=== PATIENT | male | born 1980 ===

== ENCOUNTER 2018-09-04 17:45 | Observation (INO) | payer OTHER ==
[2018-09-04] MEDS ORDERED: Lidocaine 5% Patch TD STA (18:52)
[2018-09-04] MEDS ORDERED: Lidocaine 5% Patch TD ONE (19:00)
--- NOTE | 2018-09-04 19:33 | ED PDOC ---
HPI: Chest Pain Time Seen by Provider: 09/04/18 18:26 Chief Complaint (Nursing): Shortness Of Breath Chief Complaint (Provider): Chest Pain History Per: Patient History/Exam Limitations: no limitations Onset/Duration Of Symptoms: Days (x5) Current Symptoms Are (Timing): Still Present Additional Complaint(s): 38 year old male presents to the ED for evaluation of worsening right sided chest pain for the past five days associated with shortness of breath and pleuritic pain worse with deep inspiration. He notes he gets winded when trying to do tasks such as run across the street. Denies trauma, injury, and smoking. Past Medical History Reviewed: Historical Data, Nursing Documentation, Vital Signs Vital Signs: Last Vital Signs Temp 98.8 F 09/04/18 17:50 Pulse 74 09/04/18 17:50 Resp 20 09/04/18 17:50 BP 136/82 09/04/18 17:50 Pulse Ox 98 09/04/18 17:50 Primary Care Provider: FAMILY PROVIDER,NO - Medical History PMH: No Chronic Diseases - Surgical History Surgical History: No Surg Hx - Family History Family History: States: No Known Family Hx - Social History Current smoker - smoking cessation education provided: No Alcohol: None Drugs: Denies - Allergies Allergies/Adverse Reactions: Allergies Allergy/AdvReac Type Severity Reaction Status Date / Time Penicillins Allergy RASH Verified 09/04/18 17:50 Review of Systems ROS Statement: Except As Marked, All Systems Reviewed And Found Negative (as per HPI) Cardiovascular: Positive for: Chest Pain (right sided) Respiratory: Positive for: Shortness of Breath, Pleuritic Pain (worse with deep inspiration) Physical Exam - Reviewed Nursing Documentation Reviewed: Yes Vital Signs Reviewed: Yes - Physical Exam Appears: Positive for: No Acute Distress Head Exam: Positive for: ATRAUMATIC, NORMOCEPHALIC Skin: Positive for: Warm, Dry Eye Exam: Positive for: EOMI, PERRL ENT: Negative for: Pharyngeal Erythema, Tonsillar Exudate Neck: Positive for: Painless ROM, Supple Cardiovascular/Chest: Positive for: Regular Rate, Rhythm. Negative for: Chest Non Tender (reproducible right uppe chest wall tenderness with no crepitus or step off), Murmur Respiratory: Positive for: Normal Breath Sounds (to auscultation bilaterally). Negative for: Accessory Muscle Use, Rales, Rhonchi, Wheezing, Respiratory Distress Gastrointestinal/Abdominal: Positive for: Soft. Negative for: Tenderness Back: Positive for: Normal Inspection. Negative for: Decreased ROM Extremity: Positive for: Normal ROM. Negative for: Deformity Lymphatic: Negative for: Adenopathy Neurological/Psych: Positive for: Awake, Alert. Negative for: Motor/Sensory Deficits - Laboratory Results Result Diagrams: 09/04/18 20:34 09/04/18 20:34 - ECG ECG: Positive for: Interpreted By Me, Viewed By Me ECG Rhythm: Positive for: Normal QRS, Normal ST Segment, Sinus Rhythm (at 67 bpm) O2 Sat by Pulse Oximetry: 98 (RA) Pulse Ox Interpretation: Normal Medical Decision Making Medical Decision Making: Initial Impression: right sided wall pain DDx includes but is not limited to: pneumothorax, pneumonia, costochondritis, muscle strain Initial Plan: --EKG --CXR --Flexeril 10mg PO --Lidoderm 1 ea TD --Ibuprofen 600mg PO 2024 CXR read by me as positive for bilateral lower lung infiltrates. Pneumonia workup ordered. CT Chest without Intravenous Contrast. CLINICAL HISTORY: Bilat. infiltrates TECHNIQUE: Axial computed tomography images of the chest without intravenous contrast. 360.67 mGy-cm CONTRAST: Without COMPARISON: None provided. FINDINGS: LUNGS: There are posterior bibasilar pneumonic consolidations present. No pulmonary mass. PLEURAL SPACES: No pneumothorax evident. No pleural effusions. HEART: No cardiomegaly. No pericardial effusion. LYMPH NODES: No lymphadenopathy is evident. BONES: No focal osseous abnormality or acute fracture. UPPER ABDOMEN: The upper abdomen demonstrates hepatomegaly. The liver measures approximately 17.8 cm in the midclavicular line. IMPRESSION: 1. Posterior bibasilar pneumonic consolidations are present. 2. Hepatomegaly. Electronically signed on September 04, 2018 10:12:29 PM EDT by: Vic Carroll M.D., M.B.A., Certified By ABR [id number] Labs demonstrate no leukocytosis. Antibiotics started for possible bilateral pneumonia, however, since pt has no fever, cough, or leukocytosis, concern over pulmonary pathology persists. Will hospitalize patient for bilateral infiltr ates, as discussed with Dr. Brar, hospitalist. Case also discussed with Dr. Perez, pulmonology, who is agreeable to evaluating patient in hospital. Scribe Attestation: Documented by Ying Lilly, acting as a scribe for Megan Penaloza MD. Provider Scribe Attestation: All medical record entries made by the Scribe were at my direction and personally dictated by me. I have reviewed the chart and agree that the record accurately reflects my personal performance of the history, physical exam, medical decision making, and the department course for this patient. I have also personally directed, reviewed, and agree with the discharge instructions and disposition. Disposition - Clinical Impression Clinical Impression: Pneumonia of both lower lobes Counseled Patient/Family Regarding: Studies Performed, Diagnosis - Disposition Disposition Time: 22:00 Condition: FAIR - Pt Status Changed To: Hospital Disposition Of: Observation - POA Present On Arrival: None
[2018-09-04 21:01] LABS: BASO % 0.9 % (0.0-2.0); EOS # 0.2 K/uL (0.0-0.7); EOS % 4.9 % (0.0-4.0); HEMOGLOBIN 13.5 g/dL (12.0-18.0); LYMPH # 1.9 K/uL (1.0-4.3); LYMPH % 39.6 % (20.0-40.0); MEAN CELL VOLUME 97.2 fl (80.0-94.0); MEAN CORPUSCULAR HEMOGLOBIN 33.3 pg (27.0-31.0); MEAN CORPUSCULAR HGB CONC 34.3 g/dL (33.0-37.0); MEAN PLATELET VOLUME 8.9 fl (7.2-11.7); MONO # 0.4 K/uL (0.0-0.8); MONO % 7.4 % (0.0-10.0); NEUT # 2.2 K/uL (1.8-7.0); NEUT % 47.2 % (50.0-75.0); NRBC % 0.1 % (0.0-0.0); RBC 4.05 Mil/uL (4.40-5.90); RED CELL DISTRIBUTION WIDTH 12.5 % (11.5-14.5); WHITE BLOOD COUNT 4.8 K/uL (4.8-10.8)
[2018-09-04 21:17] LABS: ALB/GLOB RATIO 1.5 (1.0-2.1); ALBUMIN 4.5 g/dL (3.5-5.0); ALT/SGPT 32 U/L (21-72); AST/SGOT 34 U/L (17-59); BLOOD UREA NITROGEN 21 mg/dl (9-20); CALCIUM 9.1 mg/dL (8.4-10.2); GFR NON-AFRICAN AMERICAN > 60
[2018-09-04] MEDS ORDERED: levoFLOXacin 750 mg in D5W 150 ML BAG IVPB STA (22:26)
[2018-09-04] MEDS ORDERED: levoFLOXacin 750 mg in D5W 750 MG/150 ML BAG IVPB ONE (22:35)
--- NOTE | 2018-09-04 23:30 | CP.PCM.HP ---
<Francine Penn - Last Filed: 09/04/18 23:39> History of Present Illness - History of Present Illness History of Present Illness: CC: dyspnea and chest pain HPI: 38 YO Male with no sig PMHx presents to the ED for dyspne and R sided chest pain. Patient states that his chest pain started 5 days ago, initially mild but worsen over the past few days, located in the R side of his chest, no radiation, sharp in nature, worse with cough, sneeze. Dsypnea started two days ago and worsened today, also endorsing chills in the past two days. Endorsing 3-4 episodes of cough in the past two weeks, non-productive. Denies flu like symptoms, fever, sweats, sick contacts, n/v/d. Denies travel in the past 6+months, and no sick contacts at home, no prolonged stasis [place] [id number] PMHx: denies SurgHX: denies FHx: DM in mother SHx: , sexually active with , using protection. ETOH in the past (ye ars ago), denies current ETOH, smoking and illicit drug use Allergies: Penicillin-rash Meds: Tylenol for pain at home Present on Admission - Present on Admission Any Indicators Present on Admission: No Review of Systems - Constitutional Constitutional: Chills, Malaise. absent: Fever, Night Sweats, Weight Loss - Cardiovascular Cardiovascular: Chest Pain, Dyspnea - Respiratory Respiratory: Cough (infrequent ), Dyspnea, Dyspnea on Exertion, Pain on Inspiration, Pain with Coughing - Gastrointestinal Gastrointestinal: absent: Abdominal Pain - Neurological Neurological: absent: Headaches Past Patient History - Past Social History Smoking Status: Never Smoked Alcohol: Social Drugs: Denies Home Situation {Lives}: With Family - PSYCHIATRIC Hx Substance Use: No Meds Allergies/Adverse Reactions: Allergies Allergy/AdvReac Type Severity Reaction Status Date / Time Penicillins Allergy RASH Verified 09/04/18 17:50 Physical Exam - Constitutional Appears: No Acute Distress, Other (looks fit ) - Head Exam Head Exam: NORMAL INSPECTION - Eye Exam Eye Exam: EOMI, Normal appearance - ENT Exam ENT Exam: Mucous Membranes Moist - Respiratory Exam Respiratory Exam: Decreased Breath Sounds (in the lower lobes b/l ), Rhonchi (mild in the R middle/lower lobe ), NORMAL BREATHING PATTERN. absent: Chest Wall Tenderness, Rales - Cardiovascular Exam Cardiovascular Exam: REGULAR RHYTHM, +S1, +S2 - GI/Abdominal Exam GI & Abdominal Exam: Normal Bowel Sounds, Soft. absent: Tenderness - Extremities Exam Extremities exam: Positive for: normal inspection. Negative for: calf tenderness, pedal edema - Back Exam Back exam: NORMAL INSPECTION - Neurological Exam Neurological exam: Alert, Oriented x3 - Psychiatric Exam Psychiatric exam: Normal Mood - Skin Skin Exam: Dry, Intact, Normal Color, Warm Results - Vital Signs Recent Vital Signs: Last Vital Signs Temp 98.6 F 09/04/18 23:16 Pulse 55 L 09/04/18 23:16 Resp 16 09/04/18 23:16 BP 116/75 09/04/18 23:16 Pulse Ox 98 09/04/18 23:16 - Labs Result Diagrams: 09/04/18 20:34 09/04/18 20:34 Labs: Laboratory Results - last 24 hr 09/04/18 09/04/18 09/04/18 20:34 20:34 20:34 WBC 4.8 RBC 4.05 L Hgb 13.5 Hct 39.3 MCV 97.2 H MCH 33.3 H MCHC 34.3 RDW 12.5 Plt Count 186 MPV 8.9 Neut % (Auto) 47.2 L Lymph % (Auto) 39.6 [place] % (Auto) 7.4 Eos % (Auto) 4.9 H Baso % (Auto) 0.9 Neut # (Auto) 2.2 Lymph # (Auto) 1.9 [place] # (Auto) 0.4 Eos # (Auto) 0.2 Baso # (Auto) 0.0 Sodium 138 Potassium 3.5 L Chloride 99 Carbon Dioxide 29 Anion Gap 14 BUN 21 H Creatinine 0.9 Est GFR ( Amer) > 60 Est GFR (Non-Af Amer) > 60 Random Glucose 87 Lactic Acid 1.0 Calcium 9.1 Total Bilirubin 0.5 AST 34 ALT 32 Alkaline Phosphatase 66 Total Protein 7.7 Albumin 4.5 Globulin 3.1 Albumin/Globulin Ratio 1.5 HIV-1 Ab Rapid Screen 09/04/18 20:53 WBC RBC Hgb Hct MCV MCH MCHC RDW Plt Count MPV Neut % (Auto) Lymph % (Auto) [place] % (Auto) Eos % (Auto) Baso % (Auto) Neut # (Auto) Lymph # (Auto) [place] # (Auto) Eos # (Auto) Baso # (Auto) Sodium Potassium Chloride Carbon Dioxide Anion Gap BUN Creatinine Est GFR ( Amer) Est GFR (Non-Af Amer) Random Glucose Lactic Acid Calcium Total Bilirubin AST ALT Alkaline Phosphatase Total Protein Albumin Globulin Albumin/Globulin Ratio HIV-1 Ab Rapid Screen Non reactive Assessment & Plan - Assessment and Plan (Free Text) Assessment: Assessment/Plan: 38 YO Male with no sig PMH is admitted for bilateral pulmonary infiltrates. Bilateral pulmonary infiltrates -atypical symptoms present, no leukocystosis, cough or fevers present -likely walking pneumonia but given symptoms other causes like atelectasis, PE or other pulmonary pathologies cannot be ruled out -CT chest sig for Posterior bibasilar pneumonic consolidations are present (mosaic pattern noted in the lower lobes b/l) -follow up official CT findings -Pulmonary consulted, follow up recs -mildly elevated d-dimer, will order CTA to r/o PE -c/w IV abx for now -Pain management -Duonab prn for dyspnea -follow up procalcitonin for infection Dehydration -mildly elevated BUN -IV hydration and follow up AM labs Hypokalemia -Low K -will replace PO -follow up BMP DVT prolx -Lovenox SC <Jono Brar - Last Filed: 09/05/18 04:17> Results - Vital Signs Recent Vital Signs: Last Vital Signs Temp 97.2 F L 09/05/18 02:04 Pulse 50 L 09/05/18 02:04 Resp 20 09/05/18 02:04 BP 113/72 09/05/18 02:04 Pulse Ox 98 09/05/18 02:04 - Labs Result Diagrams: 09/04/18 20:34 09/04/18 20:34 Labs: Laboratory Results - last 24 hr 09/04/18 09/04/18 09/04/18 20:34 20:34 20:34 WBC 4.8 RBC 4.05 L Hgb 13.5 Hct 39.3 MCV 97.2 H MCH 33.3 H MCHC 34.3 RDW 12.5 Plt Count 186 MPV 8.9 Neut % (Auto) 47.2 L Lymph % (Auto) 39.6 [place] % (Auto) 7.4 Eos % (Auto) 4.9 H Baso % (Auto) 0.9 Neut # (Auto) 2.2 Lymph # (Auto) 1.9 [place] # (Auto) 0.4 Eos # (Auto) 0.2 Baso # (Auto) 0.0 D-Dimer, Quantitative Sodium 138 Potassium 3.5 L Chloride 99 Carbon Dioxide 29 Anion Gap 14 BUN 21 H Creatinine 0.9 Est GFR ( Amer) > 60 Est GFR (Non-Af Amer) > 60 Random Glucose 87 Lactic Acid 1.0 Calcium 9.1 Total Bilirubin 0.5 AST 34 ALT 32 Alkaline Phosphatase 66 Total Protein 7.7 Albumin 4.5 Globulin 3.1 Albumin/Globulin Ratio 1.5 HIV-1 Ab Rapid Screen 09/04/18 09/04/18 20:53 22:40 WBC RBC Hgb Hct MCV MCH MCHC RDW Plt Count MPV Neut % (Auto) Lymph % (Auto) [place] % (Auto) Eos % (Auto) Baso % (Auto) Neut # (Auto) Lymph # (Auto) [place] # (Auto) Eos # (Auto) Baso # (Auto) D-Dimer, Quantitative 236 H Sodium Potassium Chloride Carbon Dioxide Anion Gap BUN Creatinine Est GFR ( Amer) Est GFR (Non-Af Amer) Random Glucose Lactic Acid Calcium Total Bilirubin AST ALT Alkaline Phosphatase Total Protein Albumin Globulin Albumin/Globulin Ratio HIV-1 Ab Rapid Screen Non reactive Attending/Attestation - Attestation I have personally seen and examined this patient.: Yes I have fully participated in the care of the patient.: Yes I have reviewed all pertinent clinical information: Yes Notes (Text): 09/05/18 04:10 I saw, examined and discussed this patient with Dr Penn. I agree with the assessment and plan outlined. This is a 38 years old male with no significant medical hx who comes with 4 days of localized pleuritic right side chest pain associated with SOB. CT chest showed signs of bibasal pneumonia. CTA was negative for PE. We will treat Acute Community Aquired Pneumonia, most likely Atypical with Rocephin and Azithromycin. Treat hypokalemia and dehydration. Jono Brar MD
[2018-09-04] MEDS ORDERED: Albuterol-Ipratrop 3 mg / 0.5 (3 ml) UD INH PRN (23:36)
[2018-09-04] MEDS ORDERED: Potassium Chloride 20 mEq ER Tab PO ONE (23:37)
[2018-09-04] MEDS ORDERED: Sodium Chloride 0.9% 1,000 ML IV SCH (23:45)
[2018-09-04 23:48] VITALS: BMI 25.7
[2018-09-05] MEDS ORDERED: Iodixanol 320 MG/ML 100 ML BOTTLE IV ONE (00:10)
[2018-09-05] MEDS ORDERED: Sodium Chloride 0.9% 50 ML IV ONE (00:10)
[2018-09-05] MEDS ORDERED: Potassium Chloride 20 mEq ER Tab PO ONE (01:24)
[2018-09-05 02:05] VITALS: RESP 20
[2018-09-05 06:23] LABS: BASO % 0.8 % (0.0-2.0); EOS # 0.2 K/uL (0.0-0.7); EOS % 5.4 % (0.0-4.0); HEMOGLOBIN 13.3 g/dL (12.0-18.0); LYMPH # 1.5 K/uL (1.0-4.3); LYMPH % 35.7 % (20.0-40.0); MEAN CELL VOLUME 97.2 fl (80.0-94.0); MEAN CORPUSCULAR HEMOGLOBIN 33.5 pg (27.0-31.0); MEAN CORPUSCULAR HGB CONC 34.5 g/dL (33.0-37.0); MEAN PLATELET VOLUME 8.6 fl (7.2-11.7); MONO # 0.3 K/uL (0.0-0.8); MONO % 7.8 % (0.0-10.0); NEUT # 2.1 K/uL (1.8-7.0); NEUT % 50.3 % (50.0-75.0); NRBC % 0.2 % (0.0-0.0); RBC 3.96 Mil/uL (4.40-5.90); RED CELL DISTRIBUTION WIDTH 12.4 % (11.5-14.5); WHITE BLOOD COUNT 4.1 K/uL (4.8-10.8)
[2018-09-05 06:53] LABS: BLOOD UREA NITROGEN 16 mg/dl (9-20); CALCIUM 8.8 mg/dL (8.4-10.2); GFR NON-AFRICAN AMERICAN > 60
[2018-09-05] MEDS ORDERED: Enoxaparin 40 mg Syringe SC SCH (09:00)
[2018-09-05 10:18] LABS: ABG ALLEN TEST YES; ARTERIAL BLOOD GAS HCO3 27.2 mmol/L (21-28); ARTERIAL BLOOD GAS HEMOGLOBIN 13.8 g/dL (11.7-17.4); ARTERIAL BLOOD GAS O2 CAPACITY 18.9 mL/dL (16-24); ARTERIAL BLOOD GAS O2 CONTENT 18.5 ML/dL (15-23); ARTERIAL BLOOD GAS O2 SAT 97.8 % (95-98); ARTERIAL BLOOD GAS PCO2 39 mm/Hg (35-45); ARTERIAL BLOOD GAS PH 7.45 (7.35-7.45); ARTERIAL BLOOD GAS PO2 79 mm/Hg (80-100); ARTERIAL BLOOD GAS TCO2 28.3 mmol/L (22-28)
--- NOTE | 2018-09-05 10:27 | RAD ---
Date of service: 09/04/2018 HISTORY: right sided chest pain COMPARISON: Correlation made with concomitant CT chest. TECHNIQUE: Chest PA and lateral views FINDINGS: LUNGS: Linear and discoid type atelectatic changes seen in lower lung houser. Lung bases. PLEURA: No significant pleural effusion identified. No pneumothorax apparent. CARDIOVASCULAR: No aortic atherosclerotic calcification present. Normal cardiac size. No pulmonary vascular congestion. OSSEOUS STRUCTURES: No significant abnormalities. VISUALIZED UPPER ABDOMEN: Normal. OTHER FINDINGS: None. IMPRESSION: Linear and discoid type atelectatic changes seen in lower lower lung houser. Lung bases.
--- NOTE | 2018-09-05 10:27 | CT ---
Date of service: 09/04/2018 PROCEDURE: CT Chest without contrast HISTORY: bilateral infiltrates COMPARISON: None available. TECHNIQUE: Contiguous axial images were obtained through the chest without intravenous contrast enhancement. Sagittal and coronal reconstructions were performed. Radiation dose (DLP): 360.67 mGy-cm. This CT exam was performed using one or more of the following dose reduction techniques: Automated exposure control, adjustment of the mA and/or kV according to patient size, and/or use of iterative reconstruction technique. FINDINGS: LUNGS: Bilateral lower lobe linear scar/atelectasis. No pulmonary infiltrate. No pulmonary mass. Minimal linear scar/atelectasis in the lingula and right middle lobe. MEDIASTINUM: Unremarkable thoracic aorta. No aneurysm. Normal sized heart. Main pulmonary artery unremarkable. No vascular congestion. No lymphadenopathy. No aortic atherosclerotic calcification or mural plaque present. PLEURA: No pleural fluid. No pneumothorax. BONES: No fracture. No destructive lesion. UPPER ABDOMEN: Grossly unremarkable. OTHER FINDINGS: None. IMPRESSION: Linear scar/atelectasis both lower lobes, right middle lobe and lingula. No pulmonary infiltrate. Otherwise unremarkable examination. The preliminary findings for this examination were reported by [facility] at 10:12 p.m. on 09/04/2018. There is discordance of this report with the preliminary findings. There is no iraida pulmonary infiltrate identified at this time. No
--- NOTE | 2018-09-05 11:01 | CT ---
Date of service: 09/05/2018 PROCEDURE: CT Chest with contrast (Pulmonary Angiogram) HISTORY: Right Chest pain/ Shortness of Breath COMPARISON: Comparison made with chest radiograph and noncontrast CT chest both dated 09/04/2018. TECHNIQUE: Axial computed tomography images were obtained of the chest in the pulmonary arterial phase of enhancement. Coronal and sagittal reformatted images were created and reviewed. Intravenous contrast dose: Radiation dose: Total exam DLP = 373.64 mGy-cm. This CT exam was performed using one or more of the following dose reduction techniques: Automated exposure control, adjustment of the mA and/or kV according to patient size, and/or use of iterative reconstruction technique. FINDINGS: PULMONARY ARTERIES: The visualized pulmonary trunk, right and left main, lobar, segmental and proximal subsegmental branches of the pulmonary arteries are well opacified with no evidence to suggest acute central pulmonary embolus. Pulmonary trunk measures approximately 3 cm. AORTA: No acute findings. No thoracic aortic aneurysm. Ascending thoracic aorta measures approximately 3.1 cm and descending thoracic aorta measures approximately 2.4 cm. No aortic atherosclerotic calcification or mural plaque present. LUNGS: There are areas of linear and discoid type atelectasis present in both lung bases as well as the middle lobe and lingular regions. Additionally, there are areas of passive/dependent type atelectasis both posterior lower lung houser. PLEURAL SPACES: Unremarkable. No effusion or pneumothorax. HEART: Heart size borderline/mildly enlarged.. No significant pericardial effusion. LYMPH NODES: No significant mediastinal or hilar lymphadenopathy. Trachea midline and patent with no large central endoluminal lesions. There is a small hiatal hernia. BONES, CHEST WALL: Minor multilevel degenerative spondylosis of the thoracic spine. OTHER FINDINGS: Unremarkable. IMPRESSION: No evidence of acute central pulmonary embolus. Areas of linear and discoid type atelectasis both lung bases including the middle lobe and lingular regions. Mild passive/dependent type atelectasis also present in both posterior lower lung houser.
--- NOTE | 2018-09-05 11:15 | CP.PCM.DIS ---
Provider - Provider Date of Admission: 09/04/18 22:34 Attending physician: Jono Brar Consults: 09/04/18 22:35 Pulmonology Consult Routine Comment: Consulting Provider: Jake Perez Consulting Physician: Jake Perez Reason for Consult: bilateral pulm infiltrates Time Spent in preparation of Discharge (in minutes): 20 Diagnosis - Discharge Diagnosis (1) Atelectasis of both lungs Status: Acute (2) Dehydration Status: Acute (3) Hypokalemia Status: Acute Hospital Course - Lab Results Lab Results: Most Recent Lab Values WBC 4.1 K/uL (4.8-10.8) L 09/05/18 05:45 RBC 3.96 Mil/uL (4.40-5.90) L 09/05/18 05:45 Hgb 13.3 g/dL (12.0-18.0) 09/05/18 05:45 Hct 38.5 % (35.0-51.0) 09/05/18 05:45 MCV 97.2 fl (80.0-94.0) H 09/05/18 05:45 MCH 33.5 pg (27.0-31.0) H 09/05/18 05:45 MCHC 34.5 g/dL (33.0-37.0) 09/05/18 05:45 RDW 12.4 % (11.5-14.5) 09/05/18 05:45 Plt Count 186 K/uL (130-400) 09/05/18 05:45 MPV 8.6 fl (7.2-11.7) 09/05/18 05:45 Neut % (Auto) 50.3 % (50.0-75.0) 09/05/18 05:45 Lymph % (Auto) 35.7 % (20.0-40.0) 09/05/18 05:45 [place] % (Auto) 7.8 % (0.0-10.0) 09/05/18 05:45 Eos % (Auto) 5.4 % (0.0-4.0) H 09/05/18 05:45 Baso % (Auto) 0.8 % (0.0-2.0) 09/05/18 05:45 Neut # (Auto) 2.1 K/uL (1.8-7.0) 09/05/18 05:45 Lymph # (Auto) 1.5 K/uL (1.0-4.3) 09/05/18 05:45 [place] # (Auto) 0.3 K/uL (0.0-0.8) 09/05/18 05:45 Eos # (Auto) 0.2 K/uL (0.0-0.7) 09/05/18 05:45 Baso # (Auto) 0.0 K/uL (0.0-0.2) 09/05/18 05:45 D-Dimer, Quantitative 236 ng/mlDDU (0-230) H 09/04/18 22:40 pCO2 39 mm/Hg (35-45) 09/05/18 08:47 pO2 79 mm/Hg (80-100) L 09/05/18 08:47 HCO3 27.2 mmol/L (21-28) 09/05/18 08:47 ABG pH 7.45 (7.35-7.45) 09/05/18 08:47 ABG Total CO2 28.3 mmol/L (22-28) H 09/05/18 08:47 ABG O2 Saturation 97.8 % (95-98) 09/05/18 08:47 ABG O2 Content 18.5 ML/dL (15-23) 09/05/18 08:47 ABG Base Excess 3.0 mmol/L (-2.0-3.0) 09/05/18 08:47 ABG Hemoglobin 13.8 g/dL (11.7-17.4) 09/05/18 08:47 ABG Carboxyhemoglobin 2.3 % (0.5-1.5) H 09/05/18 08:47 POC ABG HHb (Measured) 2.1 % (0.0-5.0) 09/05/18 08:47 ABG Methemoglobin 0.7 % (0.0-3.0) 09/05/18 08:47 ABG O2 Capacity 18.9 mL/dL (16-24) 09/05/18 08:47 Babar Test Yes 09/05/18 08:47 A-a O2 Difference 22.0 mm/Hg 09/05/18 08:47 Hgb O2 Saturation 94.9 % (95.0-98.0) L 09/05/18 08:47 FiO2 21.0 % 09/05/18 08:47 Sodium 138 mmol/l (132-148) 09/05/18 05:45 Potassium 4.0 MMOL/L (3.6-5.0) 09/05/18 05:45 Chloride 104 mmol/L (98-107) 09/05/18 05:45 Carbon Dioxide 27 mmol/L (22-30) 09/05/18 05:45 Anion Gap 11 (10-20) 09/05/18 05:45 BUN 16 mg/dl (9-20) 09/05/18 05:45 Creatinine 0.8 mg/dl (0.8-1.5) 09/05/18 05:45 Est GFR ( Amer) > 60 09/05/18 05:45 Est GFR (Non-Af Amer) > 60 09/05/18 05:45 Random Glucose 87 mg/dL (75-110) 09/05/18 05:45 Lactic Acid 1.0 mmol/L (0.7-2.1) 09/04/18 20:34 Calcium 8.8 mg/dL (8.4-10.2) 09/05/18 05:45 Total Bilirubin 0.5 mg/dl (0.2-1.3) 09/04/18 20:34 AST 34 U/L (17-59) 09/04/18 20:34 ALT 32 U/L (21-72) 09/04/18 20:34 Alkaline Phosphatase 66 U/L (38-126) 09/04/18 20:34 Total Protein 7.7 G/DL (6.3-8.2) 09/04/18 20:34 Albumin 4.5 g/dL (3.5-5.0) 09/04/18 20:34 Globulin 3.1 gm/dL (2.2-3.9) 09/04/18 20:34 Albumin/Globulin Ratio 1.5 (1.0-2.1) 09/04/18 20:34 HIV-1 Ab Rapid Screen Non reactive (NON REAC) 09/04/18 20:53 - Hospital Course Hospital Course: 38 YO Male with no sig PMH is admitted for bilateral pulmonary infiltrates. Patient admitted for further evaluation. Upon admission CT scan was done, positive for b/l lower base atelactasis, no sign of pneumonia detected. PE ruled out, D-Dimer mildly elevated. Patient was afebrile, and symptoms have improved. Patient seen and examined today morning. Patient feel better, question and concern answered and addressed. Patient reassured about diagnosis. Will be discharge with Incentive spirometry, levaquin, and duoneb 750, and script for work. Patient will need to follow up with clinic for further management. MEdication to be discharge on Duoneb Levofloxacin Chest CT No evidence of acute central pulmonary embolus. Areas of linear and discoid type atelectasis both lung bases including the middle lobe and lingular regions. Mild passive/dependent type atelectasis also present in both posterior lower lung houser. EKG NSR Discharge Exam - Head Exam Head Exam: NORMAL INSPECTION - Eye Exam Eye Exam: EOMI, Normal appearance, PERRL Pupil Exam: NORMAL ACCOMODATION, PERRL - Respiratory Exam Respiratory Exam: Clear to PA & Lateral, NORMAL BREATHING PATTERN, UNREMARKABLE - Cardiovascular Exam Cardiovascular Exam: REGULAR RHYTHM, +S1, +S2 - GI/Abdominal Exam GI & Abdominal Exam: Normal Bowel Sounds, Unremarkable - Neurological Exam Neurological exam: Alert, CN II-XII Intact, Normal Gait, Oriented x3, Reflexes Normal - Psychiatric Exam Psychiatric exam: Normal Affect, Normal Mood - Skin Skin Exam: Dry, Intact, Normal Color, Warm Discharge Plan - Discharge Medications Prescriptions: Levofloxacin [Levaquin] 750 mg PO DAILY #7 tablet - Follow Up Plan Condition: FAIR Disposition: HOME/ ROUTINE Instructions: Dehydration, Adult (DC), Hypokalemia (DC), Community-Acquired Pneumonia, Adult (DC) Additional Instructions: [facility] [place] a las 1pm con dr brandon. llegar / hora temprano para registrarse. Referrals: [facility] [Outside] Jake Perez MD [Staff Provider] -
--- NOTE | 2018-09-05 11:55 | CARD ---
APPROVED REPORT Date of service: 09/04/2018 EKG Measurement Heart [id number] <Conclusion> Normal sinus rhythm Left axis deviation Minimal voltage criteria for LVH, may be normal variant Abnormal ECG
--- NOTE | 2018-09-05 13:02 | CP.PCM.CON ---
History of Present Illness - History of Present Illness History of Present Illness: Pulmonary consult for a 38 y/o M, with no chronic PMHx, came to [facility] on 08/05/28 for evaluation of moderate SOB, associated to intermittent coughing, no productive, non bleeding, S[place]AL for 5 days [employer] without improvement Worsening symptoms: R anterior chest pain with deep coughing and breathing. Aggravated factor: Coughing/exercise. Pt denied: fever, chills, n/v/d, abdominal pain, urinary symptoms, CP, palpitations, sick contact, recent travel out of [facility]. CXR: Atelectasis changes LLL houser. Both Chest CT consistent with B/L lower lobe atelectasis, no infiltrates, no pulmonary embolus, no Pneumothorax. EKG with normal sinus rhythm. Review of Systems - Constitutional Constitutional: Other (negative) - EENT Eyes: Other (negative) Ears: Other (negative) Nose/Mouth/Throat: Other (negative) - Cardiovascular Cardiovascular: Other (negative) - Respiratory Respiratory: Cough, Dyspnea, Dyspnea on Exertion, Pain with Coughing - Gastrointestinal Gastrointestinal: Other (negative) - Genitourinary Genitourinary: Other (negtaive) - Musculoskeletal Musculoskeletal: Other (negative) - Integumentary Integumentary: Other (negative) - Neurological Neurological: Other (negative) - Psychiatric Psychiatric: Other (negative) - Endocrine Endocrine: Other (negative) - Hematologic/Lymphatic Hematologic: Other (negative) Past Patient History - Past Medical History & Family History Past Medical History?: No Pertinent Family History: Unknown - Past Social History Smoking Status: Never Smoked Alcohol: None Drugs: Denies Home Situation {Lives}: With Family - CARDIAC Hx Cardiac Disorders: No - PULMONARY Hx Respiratory Disorders: No - NEUROLOGICAL Hx Neurological Disorder: No - HEENT Hx HEENT Problems: No - RENAL Hx Chronic Kidney Disease: No - ENDOCRINE/METABOLIC Hx Endocrine Disorders: No - HEMATOLOGICAL/ONCOLOGICAL Hx Blood Disorders: No - INTEGUMENTARY Hx Dermatological Problems: No - MUSCULOSKELETAL/RHEUMATOLOGICAL Hx Musculoskeletal Disorders: No Hx Falls: No - GASTROINTESTINAL Hx Gastrointestinal Disorders: No - GENITOURINARY/GYNECOLOGICAL Hx Genitourinary Disorders: No - PSYCHIATRIC Hx Psychophysiologic Disorder: No Hx Substance Use: No - SURGICAL HISTORY Hx Surgeries: No - ANESTHESIA Hx Anesthesia: No Meds Home Medications: Home Medication List Medication Instructions Recorded Confirmed Type Albuterol HFA [Ventolin HFA 90 2 puff IH Q4H PRN #1 pump 09/05/18 Rx mcg/actuation (8 g)] Albuterol HFA [Ventolin HFA 90 2 puff IH [id number] #1 puff 09/05/18 Rx mcg/actuation (8 g)] Albuterol/Ipratropium [Combivent 2 puff IH BID #1 inhaler 09/05/18 Rx Respimat] Ibuprofen [Motrin Tab] 400 mg PO Q6 PRN tab 09/05/18 Rx Levofloxacin [Levaquin] 750 mg PO DAILY #7 tablet 09/05/18 Rx guaiFENesin/Dextromethorphan 1 tab PO BID #30 tab 09/05/18 Rx [Mucinex-DM 600-30 mg] Allergies/Adverse Reactions: Allergies Allergy/AdvReac Type Severity Reaction Status Date / Time Penicillins Allergy RASH Verified 09/04/18 17:50 - Medications Medications: Current Medications Acetaminophen (Tylenol 325mg Tab) 650 mg PO Q6 PRN PRN Reason: Pain, Mild (1-3) Acetaminophen (Tylenol 325mg Tab) 650 mg PO Q6 PRN PRN Reason: Fever >100.4 F Albuterol/Ipratropium (Duoneb 3 Mg/0.5 Mg (3 Ml) Ud) 3 ml INH RQ6 PRN PRN Reason: Shortness of Breath Enoxaparin Sodium (Lovenox) 40 mg SC DAILY ELANA; Protocol Last Admin: 09/05/18 09:26 Dose: Not Given Levofloxacin/Dextrose (Levaquin 750mg) 750 mg in 150 mls @ 100 mls/hr IVPB HS [facility]; Protocol Ibuprofen (Motrin Tab) 400 mg PO Q6 PRN PRN Reason: Fever >100.4 F Ketorolac Tromethamine (Toradol) 30 mg IVP Q6 PRN PRN Reason: Pain, severe (8-10) Ketorolac Tromethamine (Toradol) 15 mg IVP Q4 PRN PRN Reason: Pain, moderate (4-7) Physical Exam - Constitutional Appears: No Acute Distress - Head Exam Head Exam: NORMAL INSPECTION - Eye Exam Eye Exam: PERRL - ENT Exam ENT Exam: Normal Exam - Neck Exam Neck exam: Positive for: Normal Inspection - Respiratory Exam Respiratory Exam: NORMAL BREATHING PATTERN - Cardiovascular Exam Cardiovascular Exam: REGULAR RHYTHM - GI/Abdominal Exam GI & Abdominal Exam: Normal Bowel Sounds, Soft - Extremities Exam Extremities exam: Positive for: normal inspection - Back Exam Back exam: NORMAL INSPECTION - Neurological Exam Neurological exam: Alert, Oriented x3 Additional comments: No motor/sensory deficit - Psychiatric Exam Psychiatric exam: Normal Affect, Normal Mood - Skin Skin Exam: Normal Color, Warm Results - Vital Signs Recent Vital Signs: Last Vital Signs Temp 97.5 F L 09/05/18 08:57 Pulse 55 L 09/05/18 08:57 Resp 20 09/05/18 08:57 BP 113/66 09/05/18 08:57 Pulse Ox 94 L 09/05/18 08:57 reviewed Yanet - Labs Result Diagrams: 09/05/18 05:45 09/05/18 05:45 Labs: Laboratory Results - last 24 hr 09/04/18 09/04/18 09/04/18 20:34 20:34 20:34 WBC 4.8 RBC 4.05 L Hgb 13.5 Hct 39.3 MCV 97.2 H MCH 33.3 H MCHC 34.3 RDW 12.5 Plt Count 186 MPV 8.9 Neut % (Auto) 47.2 L Lymph % (Auto) 39.6 Mckean % (Auto) 7.4 Eos % (Auto) 4.9 H Baso % (Auto) 0.9 Neut # (Auto) 2.2 Lymph # (Auto) 1.9 Mckean # (Auto) 0.4 Eos # (Auto) 0.2 Baso # (Auto) 0.0 D-Dimer, Quantitative pCO2 pO2 HCO3 ABG pH ABG Total CO2 ABG O2 Saturation ABG O2 Content ABG Base Excess ABG Hemoglobin ABG Carboxyhemoglobin POC ABG HHb (Measured) ABG Methemoglobin ABG O2 Capacity Babar Test A-a O2 Difference Hgb O2 Saturation FiO2 Sodium 138 Potassium 3.5 L Chloride 99 Carbon Dioxide 29 Anion Gap 14 BUN 21 H Creatinine 0.9 Est GFR ( Amer) > 60 Est GFR (Non-Af Amer) > 60 Random Glucose 87 Lactic Acid 1.0 Calcium 9.1 Total Bilirubin 0.5 AST 34 ALT 32 Alkaline Phosphatase 66 Total Protein 7.7 Albumin 4.5 Globulin 3.1 Albumin/Globulin Ratio 1.5 HIV-1 Ab Rapid Screen 09/04/18 09/04/18 09/05/18 20:53 22:40 05:45 WBC 4.1 L RBC 3.96 L Hgb 13.3 Hct 38.5 MCV 97.2 H MCH 33.5 H MCHC 34.5 RDW 12.4 Plt Count 186 MPV 8.6 Neut % (Auto) 50.3 Lymph % (Auto) 35.7 Mckean % (Auto) 7.8 Eos % (Auto) 5.4 H Baso % (Auto) 0.8 Neut # (Auto) 2.1 Lymph # (Auto) 1.5 Mckean # (Auto) 0.3 Eos # (Auto) 0.2 Baso # (Auto) 0.0 D-Dimer, Quantitative 236 H pCO2 pO2 HCO3 ABG pH ABG Total CO2 ABG O2 Saturation ABG O2 Content ABG Base Excess ABG Hemoglobin ABG Carboxyhemoglobin POC ABG HHb (Measured) ABG Methemoglobin ABG O2 Capacity Babar Test A-a O2 Difference Hgb O2 Saturation FiO2 Sodium Potassium Chloride Carbon Dioxide Anion Gap BUN Creatinine Est GFR ( Amer) Est GFR (Non-Af Amer) Random Glucose Lactic Acid Calcium Total Bilirubin AST ALT Alkaline Phosphatase Total Protein Albumin Globulin Albumin/Globulin Ratio HIV-1 Ab Rapid Screen Non reactive 09/05/18 09/05/18 05:45 08:47 WBC RBC Hgb Hct MCV MCH MCHC RDW Plt Count MPV Neut % (Auto) Lymph % (Auto) Mckean % (Auto) Eos % (Auto) Baso % (Auto) Neut # (Auto) Lymph # (Auto) Mckean # (Auto) Eos # (Auto) Baso # (Auto) D-Dimer, Quantitative pCO2 39 pO2 79 L HCO3 27.2 ABG pH 7.45 ABG Total CO2 28.3 H ABG O2 Saturation 97.8 ABG O2 Content 18.5 ABG Base Excess 3.0 ABG Hemoglobin 13.8 ABG Carboxyhemoglobin 2.3 H POC ABG HHb (Measured) 2.1 ABG Methemoglobin 0.7 ABG O2 Capacity 18.9 Babar Test Yes A-a O2 Difference 22.0 Hgb O2 Saturation 94.9 L FiO2 21.0 Sodium 138 Potassium 4.0 Chloride 104 Carbon Dioxide 27 Anion Gap 11 BUN 16 Creatinine 0.8 Est GFR ( Amer) > 60 Est GFR (Non-Af Amer) > 60 Random Glucose 87 Lactic Acid Calcium 8.8 Total Bilirubin AST ALT Alkaline Phosphatase Total Protein Albumin Globulin Albumin/Globulin Ratio HIV-1 Ab Rapid Screen reviewed J.PTeresa - EKG Data EKG comments: reviewed J.PTeresa - Imaging and Cardiology Chest x-ray Status: Report reviewed by me (Yanet) CT scan - chest Status: Report reviewed by me (Yanet) Assessment & Plan (1) Atelectasis of both lungs Status: Acute Priority: High - Assessment and Plan (Free Text) Plan: Agree with discharge and empiric coverage with Levaquin. Suggested to continue with Combivent Respimat 2 puff BID, Mucinex 600/30 mg bid, f/u CXR in a week. - Date & Time Date: 09/05/18 Time: 10:30
[2018-09-05] MEDS ORDERED: Promethazine DM 6.25 mg-15 mg/5 ml Syrup PO PRN (13:04)
[2018-09-05 16:23] VITALS: BP 112/67; PULSE 58; TEMP 98.2; O2SAT 97
[2018-09-05] MEDS ORDERED: guaiFENesin-DM 600-30 mg ER Tab PO SCH (17:00)
[2018-09-05] MEDS ORDERED: levoFLOXacin 750 mg in D5W 750 MG/150 ML BAG IVPB SCH (22:00)
== END 2018-09-05 18:11 | disposition home or self-care (01) ==
LOC: H.ER 17:45 → H.ERHOLD 22:34 → H.MEDSURG1 09-05 01:51
PROVIDERS: ADMIT Internal Medicine; ATTEND Internal Medicine
DX: J98.11 Atelectasis (principal); R09.02 Hypoxemia; R06.00 Dyspnea, unspecified; E86.0 Dehydration; E87.6 Hypokalemia; Z88.0 Allergy status to penicillin
CPT/HCPCS: 36415; 71046; 71250; 71275; 80048; 80053; 82803; 83605; 84145; 85025; 85378; 86738; 87040; 87116; 87390; 93005; 96365; 99285; G0378; J7030; Q9967